=== PATIENT | female | born 1990 | race Caucasian/White ===

== ENCOUNTER 2016-10-13 21:29 | Emergency (ER) ==
[2016-10-13] MEDS ORDERED: DECADRON IM ONE (22:39)
[2016-10-13] MEDS ORDERED: ROCEPHIN IM ONE (22:39)
[2016-10-13] MEDS ORDERED: XYLOCAINE-MPF 1% INJ ONE (22:39)
--- NOTE | 2016-10-13 22:39 | PROVIDER DOCUMENTATION ---
[facility] General - General Chief Complaint: Earache Stated Complaint: EAR PAIN, DIZZINESS Time Seen by Provider: 10/13/16 22:34 Allergies/Adverse Reactions: Patient Allergies Allergy/AdvReac Type Severity Reaction Status Date / Time No Known Allergies Allergy Verified 10/13/16 21:35 Home Medications: Home Medication List Medication Instructions Recorded Confirmed Last Taken Type Amoxicillin/Pot Clavulanate 875 mg PO Q12HR #20 tablet 10/13/16 Unknown Rx [Augmentin] Methylprednisolone [Medrol Dosepak] 4 mg PO DIRECTED #1 package 10/13/16 Unknown Rx - History of Present Illness-[facility] General Nature of Presenting Problem: 26 yof c/o cold symptoms cough with yellow sputum, congestion, earache, pressure in her head, and nausea and vomiting. Past History - Adult - PAST MEDICAL HISTORY-ADULT Major Childhood Illnesses: reports: denies history Cardiovascular: reports: denies history Respiratory: reports: denies history Gastrointestinal: reports: denies history Obstetrical/Gynecological: reports: denies history Genitourinary: reports: denies history Musculoskeletal: reports: denies history Neurological: reports: denies history Endocrine/Immune: reports: denies history Other Conditions: reports: denies history - PRIOR SURGERIES/PROCEDURES Surgical/Procedure History: reports: reviewed, not pertinent - PRIOR HOSPITALIZATIONS Prior Hospitalizations: reports: none - IMMUNIZATION STATUS Childhood Immunizations: UTD Flu Vaccine: See Nurse Assessment - FAMILY HISTORY Family History: reviewed, not pertinent Departure - Departure Time of Disposition Order: 22:38 DIAGNOSIS: Sinusitis Qualifiers: Sinusitis location: frontal Chronicity: acute Recurrence: not specified as recurrent Qualified Code(s): J01.10 - Acute frontal sinusitis, unspecified Upper respiratory infection Qualifiers: URI type: unspecified URI Qualified Code(s): J06.9 - Acute upper respiratory infection, unspecified Disposition: HOME 01 Certified Medical Emergency: Emergent Condition: Stable Additional Instructions: ED Follow Up Instructions: You have been treated by a care provider in the Emergency Department. These instructions are being provided to you so you can have an understanding of how to care for yourself upon discharge. Upon discharge from the Emergency Department, you are responsible for making arrangements for follow-up care by a physician of your choice. Take all prescribed medications as directed. Return to the Emergency Department immediately for any new or worsening symptoms. You may call the Physician Referral phone number at [phone] to obtain a list of Physicians who are taking new patients. Prescriptions: Amoxicillin/Pot Clavulanate [Augmentin] 875 mg PO Q12HR #20 tablet Methylprednisolone [Medrol Dosepak] 4 mg PO DIRECTED #1 package
[2016-10-13 23:04] VITALS: BP 134/86
== END 2016-10-13 23:03 | disposition home or self-care (01) ==
LOC: P.ED 21:29
DX: J01.10 Acute frontal sinusitis, unspecified (principal); J06.9 Acute upper respiratory infection, unspecified; H92.09 Otalgia, unspecified ear; R42 Dizziness and giddiness; R05 Cough; R09.3 Abnormal sputum; R09.81 Nasal congestion; R51 Headache; R11.2 Nausea with vomiting, unspecified
CPT/HCPCS: 96372; J0696